=== PATIENT | female | born 1985 | race American Indian/Alaskan Native ===

== ENCOUNTER 2021-04-11 17:34 | Emergency (ER) | payer SELFPAY ==
[2021-04-11 17:39] VITALS: BP 164/106
--- NOTE | 2021-04-11 18:17 | Emergency Department Report ---
ED General Adult HPI - General Chief complaint: Anxiety Stated complaint: NUMBNESS TINGLING Time Seen by Provider: 04/11/21 18:04 Source: patient Mode of arrival: Ambulatory Limitations: No Limitations - History of Present Illness Initial comments: CC: "life, stress, too much going on" HPI: THis is a 35 yo female with hx of gestational hypertension who presents with headache and dizziness since yesterday. She has had dull throbbing headache. She then had lightheadedness. No syncope. She smoked marijuana just prior to arrival. She became anxious with finger tingling. She feels a lot of pressure from her family. 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 she denies SI HI recently moved from [place] 6 months ago. -: Gradual, days(s) (1 day) Location: head Consistency: now resolved Improves with: none Worsens with: none Associated Symptoms: headaches, other (lightheadedness, finger tingling) - Related Data Allergies Allergy/AdvReac Type Severity Reaction Status Date / Time No Known Allergies Allergy Unverified 04/11/21 17:40 ED Review of Systems ROS: Stated complaint: NUMBNESS TINGLING Other details as noted in HPI Comment: All other systems reviewed and negative Constitutional: denies: fever, malaise Respiratory: denies: cough, shortness of breath Cardiovascular: denies: chest pain Gastrointestinal: denies: abdominal pain, nausea, vomiting Psychiatric: anxiety, depression ED Past Medical Hx - Past Medical History Previous Medical History?: Yes Hx Hypertension: Yes Additional medical history: anxiety - Surgical History Past Surgical History?: Yes Additional Surgical History: D&C - Social History Smoking Status: Current Every Day Smoker Substance Use Type: Marijuana ED Physical Exam - General Limitations: No Limitations General appearance: alert, in no apparent distress, other (tearful, upset, sad) - Head Head exam: Present: atraumatic, normocephalic - Eye Eye exam: Present: normal appearance - ENT ENT exam: Present: mucous membranes moist - Neck Neck exam: Present: normal inspection, full ROM - Respiratory Respiratory exam: Present: normal lung sounds bilaterally. Absent: respiratory distress, wheezes, rales, rhonchi - Cardiovascular Cardiovascular Exam: Present: regular rate, normal rhythm, normal heart sounds. Absent: systolic murmur, diastolic murmur, rubs, gallop - GI/Abdominal GI/Abdominal exam: Present: soft, normal bowel sounds. Absent: distended, tenderness, guarding, rebound - Extremities Exam Extremities exam: Present: normal inspection - Back Exam Back exam: Present: normal inspection - Neurological Exam Neurological exam: Present: alert, oriented X3 - Psychiatric Psychiatric exam: Present: normal affect, depressed. Absent: anxious, flat affect, manic, homicidal ideation, suicidal ideation - Skin Skin exam: Present: warm, dry, intact, normal color. Absent: rash ED Course Vital Signs 04/11/21 17:38 Temperature 97.8 F Pulse Rate 95 H Respiratory 18 Rate Blood Pressure 164/106 [Left] O2 Sat by Pulse 100 Oximetry ED Medical Decision Making - Medical Decision Making 1. tension headache 2. anxiety reaction 3. marijuana use recommended psychotherapy and stress coping mechanisms NO SI referred to internal medicine physician Critical care attestation.: If time is entered above; I have spent that time in minutes in the direct care of this critically ill patient, excluding procedure time. ED Disposition Clinical Impression: Tension headache, Anxiety reaction, Marijuana use Disposition: 01 HOME / SELF CARE / HOMELESS Is pt being admited?: No Does the pt Need Aspirin: No Condition: Stable Instructions: Tension Headache, Adult, [id number], Managing Anxiety, Adult Referrals: CLEMENTINE RODRIGUEZ MD [Staff Physician] - 3-5 Days Forms: Work/School Release Form(ED)
== END 2021-04-11 18:35 | disposition home or self-care (01) ==
LOC: ED 17:34
DX: F41.1 Generalized anxiety disorder (principal); F43.0 Acute stress reaction; G44.209 Tension-type headache, unspecified, not intractable; F12.90 Cannabis use, unspecified, uncomplicated; I10 Essential (primary) hypertension; F17.200 Nicotine dependence, unspecified, uncomplicated; Z98.890 Other specified postprocedural states
CPT/HCPCS: 99281